=== PATIENT | female | born 1990 | race Caucasian/White ===

== ENCOUNTER 2019-12-14 08:24 | Emergency (ER) | payer OTHER, BC ==
[~2019-12-14] VITALS: Ht 170.2 cm; Wt 74.8 kg
[2019-12-14 08:24] VITALS: BP_SYST 142
[2019-12-14] MEDS ORDERED: IBUPROFEN 600 MG TABLET PO ONE (09:15)
[2019-12-14 09:47] VITALS: BP_SYST 135
== END 2019-12-14 09:47 | disposition home or self-care (01) ==
LOC: SED 08:24
DX: S16.1XXA Strain of muscle, fascia and tendon at neck level, initial encounter (principal); V49.9XXA Car occupant (driver) (passenger) injured in unspecified traffic accident, initial encounter; Y93.89 Activity, other specified; Y92.89 Other specified places as the place of occurrence of the external cause; Y99.8 Other external cause status
CPT/HCPCS: 70450-TC; 72040-TC; 99284